=== PATIENT | female | born 1965 | race Caucasian/White ===

== ENCOUNTER → 2016-09-01 | Outpatient (CLI) | payer OTHER ==
[2016-09-01 15:22] LABS: BLOOD UREA NITROGEN 14 mg/dL (7-22); CALCIUM 8.9 mg/dL (8.7-10.7); CHLORIDE 103 meq/L (98-112); CREATININE 0.7 mg/dL (0.50-1.20); EST GLOMERULAR FILTRATION > 60 (>60 ml/min/1.73m(2)); GLUCOSE 76 mg/dL (78-110); POTASSIUM 4.1 meq/L (3.8-5.2); SODIUM 139 meq/L (135-145)
== END ==
LOC: LAB 14:39
PROVIDERS: ATTEND Anesthesiology
DX: M54.17 Radiculopathy, lumbosacral region (principal)
CPT/HCPCS: 36415; 80048

== ENCOUNTER → 2017-02-09 | Outpatient (CLI) | payer OTHER ==
--- NOTE | 2017-02-09 12:53 | DI ---
XR FOOT COMPLETE MIN 3VW,02/09/2017 12:01 PM: Clinical History: Left foot pain Previous Exam: None at this facility. Findings: 3 views of the left foot are obtained, and demonstrate a nondisplaced fracture through the proximal l eft third proximal phalanx. The surrounding soft tissues are unremarkable. Impression: Nondisplaced fracture through the left third proximal phalanx.
== END ==
LOC: MOB RAD 12:03
PROVIDERS: ATTEND Physician Assistant
DX: M79.672 Pain in left foot (principal); S92.515A Nondisplaced fracture of proximal phalanx of left lesser toe(s), initial encounter for closed fracture; W22.8XXA Striking against or struck by other objects, initial encounter
CPT/HCPCS: 73630

== ENCOUNTER → 2017-02-17 | Outpatient (CLI) | payer OTHER ==
--- NOTE | 2017-02-17 13:23 | DI ---
CT UPPER EXTREMITY W/O CNT,02/17/2017 10:01 AM: Clinical History: Right wrist strain. Previous Exam: None at this facility. Findings: Multiple helically acquired CT images are obtained through the right wrist without contrast. Bony ali gnment is anatomic. There are cystic changes involving the lunate. One is near the ulnar, proximal carrasco rface of the lunate and could represent some abutment although there is no significant positive ulnar variance. The other is in the region of the attachment of the dorsal scapholunate ligament. The lunotriquetral joint is intact. There is no diastases of the scapholunate joint. The surrounding soft tissues are unremarkable. The flexor and extensor tendons are also unremarkable. Harsh tubercle and sigmoid notch appear normal. The extensor carpi ulnar is tendon is unremarkable. The major vascular structures are unremarkable. The surrounding musculature is unremarkable. Impression: 1. Cystic changes within the lunate without scapholunate instability. No other abnormalities identifi ed.
== END ==
LOC: CT 09:56
PROVIDERS: ATTEND Orthopaedic Surgery
DX: S63.501A Unspecified sprain of right wrist, initial encounter (principal); M25.531 Pain in right wrist
CPT/HCPCS: 73200